=== PATIENT | male | born 1940 | race American Indian/Alaskan Native ===

== ENCOUNTER 2016-12-03 15:31 | Outpatient (CLI) | payer MEDICARE ==
--- NOTE | 2016-12-03 16:01 | XRay Report ---
CHEST TWO VIEWS: 12/03/16 15:31:00 CLINICAL: Chest congestion. COMPARISON: None FINDINGS: Normal heart and pulmonary vasculature.Mild aortic tortuosity. The lungs are mildly hyperexpanded and hyperlucent. A few left upper lobe subcentimeter calcified granulomata. No airspace disease or pleural effusion.Mild degenerative changes in the spine. 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 No acute cardiopulmonary process.
== END 2016-12-03 15:32 | disposition home or self-care (01) ==
LOC: SPVIMAG 15:31
PROVIDERS: ATTEND Internal Medicine Hematology & Oncology
DX: Z00.00 Encounter for general adult medical examination without abnormal findings (principal); J44.9 Chronic obstructive pulmonary disease, unspecified; R09.89 Other specified symptoms and signs involving the circulatory and respiratory systems; M47.899 Other spondylosis, site unspecified; R05 Cough
CPT/HCPCS: 71020

== ENCOUNTER 2017-03-06 09:54 | Outpatient (CLI) | payer MEDICARE ==
[2017-03-06 11:01] LABS: Blood Urea Nitrogen 17 mg/dL (9-20)
--- NOTE | 2017-03-06 14:03 | Cat Scan Report ---
CT abdomen and pelvis without contrast: Prostate malignancy. Transverse images obtained from the lower chest to the ischium with coronal and sagittal 2-D reformatted images. Oral but no IV contrast utilized. The visualized lungs demonstrate granulomata on the right. There is a 1 cm low attenuation mass in the left kidney consistent with cyst. There is a paucity of fat around the pancreas making visualization difficult there is no obvious finding. Abdominal and retroperitoneal organs otherwise appear unremarkable. No apparent periaortic adenopathy. Evaluation however is somewhat limited without contrast and the paucity of fat. The unopacified small bowel appears grossly normal. There is a moderate increase load of fecal material throughout the colon. Sections through the pelvis demonstrate a moderately enlarged and somewhat lobulated prostate gland. Scattered degenerative calcifications noted within the gland. Osteoporosis. No focal lytic or blastic lesions. Narrowing of the superior right hip space with lateral acetabular spurring. Impressions: 1. Prostatic enlargement. 2. No obvious adenopathy or metastases however the absence of IV contrast compromises this evaluation.
== END 2017-03-06 09:55 | disposition home or self-care (01) ==
LOC: NM 09:54
PROVIDERS: ATTEND Urology
DX: C61 Malignant neoplasm of prostate (principal); N40.0 Benign prostatic hyperplasia without lower urinary tract symptoms; M81.0 Age-related osteoporosis without current pathological fracture; N42.89 Other specified disorders of prostate
CPT/HCPCS: 36415; 74176; 78306; 82565; 84520; A9503

== ENCOUNTER 2017-06-18 10:55 | Outpatient (CLI) | payer MEDICARE ==
--- NOTE | 2017-06-19 15:31 | PET Report ---
PET/CT:06/18/17 10:55:00 CLINICAL: Prostate cancer RADIOPHARMACEUTICAL: 14.69mCi F18-FDG. COMPARISON: None. PET/CT TECHNIQUE- Following intravenous injection of F-18 FDG and an approximately 60 minute uptake period, CT and PET images from the mid skull to the upper thighs were acquired with the patient in the fasted state. No contrast was administered. The CT protocol used for this PET CT study is designed for attenuation correction and anatomic localization of PET abnormalities. This pathology secretary/transcriptionist CT is not desired to produce and cannot replace, [id number] diagnostic CT scans with specific imaging protocols for different body parts and indications. Plasma glucose at the time of this test: 132g/dl. The standardized uptake values (SUV) are normalized to patient body weight and indicate the highest activity concentration (SUV max) in a given disease site. FINDINGS: Brain--Physiologic FDG uptake in the visualized regions of the brain. Neck--Physiologic FDG uptake . Chest--Physiologic FDG uptake in mediastinal blood pool and myocardium. Lungs--No abnormal uptake. A 6 mm non-FDG avid left upper lobe peripheral lung nodule adjacent to the fissure. Two subcentimeter right lower lobe calcified granulomata. Pleura/pericardium--No abnormal uptake. Mild non-FDG avid posterior right pleural thickening in the vicinity of the calcified granulomata. Thoracic nodes--No abnormal uptake. Hepatobiliary--No abnormal uptake. Liver background SUV mean, as a reference for comparing FDG studies, is 3.2 . No liver mass. Spleen--No abnormal uptake. Pancreas--No abnormal uptake. Adrenal Glands--No abnormal uptake. Kidneys/Ureters/Bladder--No abnormal uptake. Abdominopelvic Nodes--No abnormal uptake. Bowel/Peritoneum/Mesentery--No abnormal uptake. Pelvic organs--No abnormal uptake. The prostate is enlarged with no abnormal uptake. It measures approximately 5.3 x 5.2 cm with FDG uptake equal to background. Nonspecific thickening of the urinary bladder wall. Bones/Soft Tissues--No abnormal uptake. no bone lesions. IMPRESSION- 1. A 6 mm non-FDG avid left upper lobe lung nodule. Recommend followup with CT in six months. 2. Large prostate with no abnormal uptake. 3. No evidence of skeletal metastasis. 4. No evidence of monica metastasis.
== END 2017-06-18 10:56 | disposition home or self-care (01) ==
LOC: PET 10:55
PROVIDERS: ATTEND Internal Medicine Hematology & Oncology
DX: C61 Malignant neoplasm of prostate (principal); R91.1 Solitary pulmonary nodule; J84.10 Pulmonary fibrosis, unspecified; N40.0 Benign prostatic hyperplasia without lower urinary tract symptoms; Z79.899 Other long term (current) drug therapy
CPT/HCPCS: 78815; 82962; A9552

== ENCOUNTER 2017-10-23 07:37 | Outpatient (CLI) | payer MEDICARE | END 2017-10-23 07:38 | disposition home or self-care (01) | LOC: VAS 07:37 | PROVIDERS: ATTEND Internal Medicine Hematology & Oncology | DX: M79.662 Pain in left lower leg (principal); M79.661 Pain in right lower leg; M79.89 Other specified soft tissue disorders; R07.9 Chest pain, unspecified; E78.5 Hyperlipidemia, unspecified; C61 Malignant neoplasm of prostate | CPT/HCPCS: 93005; 93010; 93970 ==

== ENCOUNTER 2019-12-12 12:49 | Outpatient (CLI) | payer MEDICARE ==
--- NOTE | 2019-12-12 13:54 | XRay Report ---
ABDOMEN 1 VIEW INDICATION: ABDOMINAL PAIN/ CONSTIPATION. COMPARISON: CT abdomen and pelvis without contrast 03/06/2017 FINDINGS: A large volume of stool throughout the colon. Moderate distention of the transverse and splenic flexu re of the colon. Minimal small bowel distention. No free air. Numerous urinary bladder calculi. There are at least 10 calculi and the largest measures 1 to 2 cm in size. No renal calculi are identified. IMPRESSION: 1. Constipation with a large volume of stool in the colon. 2. At least 10 urinary bladder calculi.. Signer Name: Chriss South MD Signed: 12/12/2019 1:50 PM Workstation Name: [id number]
== END 2019-12-12 12:50 | disposition home or self-care (01) ==
LOC: SPVIMAG 12:49
PROVIDERS: ATTEND Internal Medicine Hematology & Oncology
DX: K56.41 Fecal impaction (principal); N20.0 Calculus of kidney; K63.89 Other specified diseases of intestine
CPT/HCPCS: 74018

== ENCOUNTER 2020-04-09 08:33 | Outpatient (CLI) | payer MEDICARE ==
--- NOTE | 2020-04-09 11:17 | XRay Report ---
METASTATIC BONE SURVEY 17 VIEWS HISTORY: SPECIFIED DISORDER OF THE BONES COMPARISON: PET/CT from 06/18/2017. FINDINGS: No suspicious aggressive appearing lucent or sclerotic lesion is identified along the included bones. No acute fracture or dislocation is seen. There is mild to moderate degenerative change throughout t he spine. No significant soft tissue abnormality is seen. IMPRESSION: No radiographic evidence of bone lesions concerning for malignancy. Signer Name: John Cooper MD Signed: 04/09/2020 11:13 AM Workstation Name: [id number]
== END 2020-04-09 08:34 | disposition home or self-care (01) ==
LOC: XRAY 08:33
PROVIDERS: ATTEND Internal Medicine Hematology & Oncology
DX: M47.814 Spondylosis without myelopathy or radiculopathy, thoracic region (principal); C61 Malignant neoplasm of prostate; M89.8X9 Other specified disorders of bone, unspecified site
CPT/HCPCS: 77074

== ENCOUNTER 2021-04-03 08:52 | Outpatient (CLI) | payer MEDICARE | END 2021-04-03 08:53 | disposition home or self-care (01) | LOC: ECHO 08:52 | PROVIDERS: ATTEND Internal Medicine Hematology & Oncology | DX: I08.3 Combined rheumatic disorders of mitral, aortic and tricuspid valves (principal); R01.1 Cardiac murmur, unspecified; I27.20 Pulmonary hypertension, unspecified | CPT/HCPCS: 93306 ==